=== PATIENT | female | born 1955 | race African-American/Black ===

== ENCOUNTER → 2020-10-19 | Outpatient (CLI) | payer OTHER ==
--- NOTE | 2020-10-20 10:21 | RAD ---
EXAM: AP, oblique and lateral views of the feet DATE: 10/19/2020 3:30 PM INDICATION: Reason: HALLUX RIGIDUS M20.21, M20.22 / Spl. Instructions: / History: . COMPARISON: No Prior FINDINGS: Bilateral hallux valgus. Lateral subluxation sesamoids, greater on the right. Bilateral accessory na vicular. Mild bilateral hallux MTP joint degenerative change. Forefoot soft tissue swelling. No evide nce of acute fracture or dislocation. IMPRESSION: Mild hallux MTP joint degenerative change with small osteophytes. Bilateral hallux valgus with latera l subluxation of the sesamoids, greater on the right. Electronically signed by: En Thomas MD (10/20/2020 10:19 AM) [id number]
== END ==
LOC: RAD 15:22
PROVIDERS: ATTEND Podiatrist Foot Surgery
DX: M19.072 Primary osteoarthritis, left ankle and foot (principal); M19.071 Primary osteoarthritis, right ankle and foot; M20.12 Hallux valgus (acquired), left foot; M20.11 Hallux valgus (acquired), right foot; M79.89 Other specified soft tissue disorders
CPT/HCPCS: 73630

== ENCOUNTER → 2021-01-06 | Outpatient (CLI) | payer OTHER, MEDICARE ==
--- NOTE | 2021-01-07 10:34 | RAD ---
US RENAL BILAT History: Reason: OTHER MICROSCOPIC HEMATURIA / Spl. Instructions: / History: Comparison: None. Procedure: Transabdominal ultrasound images are obtained of the kidneys and bladder. Findings: Right kidney: measures 10.8 x 5.2 x 4.3 cm. Multiple right renal cysts largest measures 4.9 x 3.8 x 3.3 cm with small septation. No hydronephrosis. Left kidney: measures 10.9 x 4.3 x 5.1 cm. Left renal cyst measures 4.5 x 3.7 x 4.1 cm. No hydroneph rosis. Urinary bladder: No urinary bladder wall thickening. Left ureteral jet identified. Right ureteral jet not identified during time of imaging. The IVC is normal caliber. The visualized abdominal aorta is normal caliber. IMPRESSION: 1. Bilateral renal cysts. Septated right superior renal cyst. Bosniak 2. No follow-up imaging is rec ommended per consensus recommendations based on imaging criteria. Electronically signed by: Rico Santo DO (01/07/2021 10:31 AM) [id number]
== END ==
LOC: US 16:32
PROVIDERS: ATTEND Specialist
DX: N28.1 Cyst of kidney, acquired (principal); R31.29 Other microscopic hematuria
CPT/HCPCS: 76770

== ENCOUNTER 2021-01-22 15:55 | Emergency (ER) | payer OTHER, MEDICARE ==
[~2021-01-22] VITALS: Ht 167.6 cm; Wt 72.1 kg
[2021-01-22 15:59] VITALS: BP 145/91
--- NOTE | 2021-01-22 16:26 | PHYS DOC ---
Past History Past Surgical History: Hip Replacement, Hysterectomy Additional Past Surgical Histo: bilateral hip replacement Alcohol Use: None General Adult EDM: Chief Complaint: CHEST PAIN HPI: HPI: 65-year-old female presents with right-sided chest pain and headache. The patient states that she feels like she has pressure behind her bilateral eyes. This started prior to the chest pain. Chest pain started yesterday afternoon and came on out of nowhere. She was not doing anything particular but was preparing food at work. 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 She was not doing anything exceptionally strenuous or different than normal. The pain feels like a rubbing sensation of the right side of her chest. It is a 6 out of 10. Patient has no cardiac history. She has no significant medical history. She does not take any medications daily except for vitamins. She has had sinus infections in the past. She denies fever or chills. Review of Systems: Review of Systems: Constitutional: Denies fever or chills Eyes: Denies change in visual acuity HENT: Denies nasal congestion or sore throat Respiratory: Denies cough or shortness of breath Cardiovascular: Chest pain GI: Denies abdominal pain, nausea, vomiting, bloody stools or diarrhea : Denies dysuria Musculoskeletal: Denies back pain or joint pain Integument: Denies rash Neurologic: Headache. Denies focal weakness or sensory changes Endocrine: Denies polyuria or polydipsia Lymphatic: Denies swollen glands Psychiatric: Denies depression or anxiety Current Medications: Current Meds: Current Medications Medications (Trade) Dose Ordered Sig/Madiha Start Time Stop Time Status Last Admin Dose Admin Diphenhydramine HCl (Benadryl) 25 mg 1X ONCE 01/22/21 16:30 01/22/21 16:31 Ketorolac Tromethamine (Toradol 30mg Vial) 30 mg 1X ONCE 01/22/21 16:30 01/22/21 16:31 Metoclopramide HCl (Reglan Vial) 10 mg 1X ONCE 01/22/21 16:30 01/22/21 16:31 Sodium Chloride 1,000 ml @ 1,000 mls/hr 1X ONCE 01/22/21 16:30 01/22/21 17:29 Allergies: Allergies: Allergies Coded Allergies Type Severity Reaction Last Updated Verified No Known Drug Allergies 01/22/21 No Physical Exam: PE: Constitutional: Well developed, well nourished, no acute distress, non-toxic appearance. [] HENT: Normocephalic, atraumatic, bilateral external ears normal, oropharynx moist, no oral exudates, nose normal. [] Eyes: PERRLA, EOMI, conjunctiva normal, no discharge. [] Neck: Normal range of motion, no tenderness, supple, no stridor. [] Cardiovascular: Heart rate 80, regular rhythm, no murmur [] Lungs & Thorax: Bilateral breath sounds clear to auscultation [] Abdomen: Bowel sounds normal, soft, no tenderness, no masses, no pulsatile masses. [] Skin: Warm, dry, no erythema, no rash. [] Back: No tenderness, no CVA tenderness. [] Extremities: No tenderness, no cyanosis, no clubbing, ROM intact, no edema. [] Neurologic: Alert and oriented X 3, normal motor function, normal sensory function, no focal deficits noted. [] Psychologic: Affect normal, judgement normal, mood normal. [] Current Patient Data: Vital Signs: Vital Signs Date Time Temp Pulse Resp B/P (MAP) Pulse Ox O2 Delivery O2 Flow Rate FiO2 01/22/21 15:59 97.8 80 18 145/91 (109) 100 Room Air EKG: EKG: Sinus rhythm, rate 80, normal axis, no ST elevation or depression. [] Radiology/Procedures: Radiology/Procedures: [] Impressions: AP chest x-ray HISTORY: Chest pain. FINDINGS: Heart size normal. Mediastinal silhouette is normal. No pneumothorax, pulmonary opacities or pleural effusions. Surgical changes lower midline chest. Bones unremarkable. IMPRESSION: No acute process. Electronically signed by: Matthieu Boston MD (01/22/2021 4:42 PM) [facility] [place] DICTATED AND SIGNED BY: MATTHIEU BOSTON MD DATE: 01/22/21 164 CC: NAN ROBIN DO; NUNU WONG MD ~MTH0 0 Heart Score: C/O Chest Pain: Yes HEART Score for Chest Pain: HEART Score for Chest Pain Response (Comments) Value History Slighlty/Non-Suspicious 0 ECG Normal 0 Age > 65 2 Risk Factors 1 or 2 Risk Factors 1 Troponin < Normal Limit 0 Total 3 Risk Factors: Risk Factors: DM, Current or recent (<one month) smoker, HTN, HLP, family history of CAD, obesity. Risk Scores: Score 0 - 3: 2.5% MACE over next 6 weeks - Discharge Home Score 4 - 6: 20.3% MACE over next 6 weeks - Admit for Clinical Observation Score 7 - 10: 72.7% MACE over next 6 weeks - Early Invasive Strategies Course & Med Decision Making: Course & Med Decision Making Pertinent Labs and Imaging studies reviewed. (See chart for details) The patient's EKG is unremarkable. Her chest x-ray is unremarkable. For her headache I have given her 1 L normal saline, 10 mg of Reglan, 25 mg of Benadryl, and 30 mg of Toradol. Labs are unremarkable. Troponin is negative. This does not appear to be cardiopulmonary in nature. The patient is feeling better at this time. She is stable for discharge. If her symptoms come back or any new or worsening symptoms develop she will return to the emergency room. [] Dragon Disclaimer: Dragon Disclaimer: This electronic medical record was generated, in whole or in part, using a voice recognition dictation system. Departure Departure: Impression: Primary Impression: Chest pain Qualified Codes: R07.9 - Chest pain, unspecified Additional Impression: Headache Qualified Codes: R51.9 - Headache, unspecified Referrals: NUNU WONG MD (PCP) Patient Instructions: Chest Pain (Nonspecific), [id number] NAN ROBIN DO Jan 22, 2021 16:26
[2021-01-22] MEDS ORDERED: METOCLOPRAMIDE HCL 10 MG/2 ML VIAL. IVP ONE (16:30)
[2021-01-22] MEDS ORDERED: diphenhydrAMINE 50 MG/ML VIAL IVP ONE (16:30)
[2021-01-22] MEDS ORDERED: KETOROLAC 30 MG/ML VIAL. IVP ONE (16:30)
[2021-01-22] MEDS ORDERED: IV NORMAL SALINE 1,000ML 1,000 ML IV ONE (16:30)
[2021-01-22 16:33] LABS: BASO % 0 % (0-3); EOS # 0.1 x10^3/uL (0.0-0.7); EOS % 2 % (0-3); HEMATOCRIT 40.2 % (36.0-47.0); HEMOGLOBIN 13.3 g/dL (12.0-15.5); LYMPH # 2.3 x10^3/uL (1.0-4.8); LYMPH % 36 % (24-48); MEAN CORPUSCULAR HEMOGLOBIN 29 pg (25-35); MEAN CORPUSCULAR HGB CONC 33 g/dL (31-37); MEAN CORPUSCULAR VOLUME 89 fL (79-100); MONO # 0.8 x10^3/uL (0.0-1.1); MONO % 12 % (0-9); NEUT # 3.1 x10^3uL (1.8-7.7); NEUT % 50 % (31-73); PLATELET COUNT 254 x10^3/uL (140-400); RED BLOOD COUNT 4.51 x10^6/uL (3.50-5.40); RED CELL DISTRIBUTION WIDTH 13.6 % (11.5-14.5); WHITE BLOOD COUNT 6.3 x10^3/uL (4.0-11.0)
[2021-01-22 16:43] LABS: CALCIUM 8.7 mg/dL (8.5-10.1); GFR 66.9; POTASSIUM 4.4 mmol/L (3.5-5.1)
--- NOTE | 2021-01-22 16:44 | RAD ---
AP chest x-ray HISTORY: Chest pain. FINDINGS: Heart size normal. Mediastinal silhouette is normal. No pneumothorax, pulmonary opacities o r pleural effusions. Surgical changes lower midline chest. Bones unremarkable. IMPRESSION: No acute process. Electronically signed by: Joseph Boston MD (01/22/2021 4:42 PM) [facility]
[2021-01-22 16:49] LABS: ALBUMIN 3.7 g/dL (3.4-5.0); ALBUMIN/GLOBULIN RATIO 1.1 (1.0-1.7); TOTAL BILIRUBIN 0.5 mg/dL (0.2-1.0); TOTAL PROTEIN 7.2 g/dL (6.4-8.2)
--- NOTE | 2021-01-22 16:52 | EKG ---
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
== END 2021-01-22 18:10 | disposition home or self-care (01) ==
LOC: ER 15:55
DX: R07.89 Other chest pain (principal); R51.9 Headache, unspecified; Z90.710 Acquired absence of both cervix and uterus
CPT/HCPCS: 36415; 71045; 80053; 84484; 85025; 93005; 96361; 96374; 96375; 99285; J1200; J1885; J2765; J7030

== ENCOUNTER → 2021-03-11 | Outpatient (CLI) | payer OTHER ==
--- NOTE | 2021-03-11 18:20 | RAD ---
Study: XR HIP_RT 2-3VIEWS Indication: Fall. Pain. Comparison: 12/17/2020 Findings: Total right hip arthroplasty construct. Unchanged hardware positioning. No evidence for loosening. No periprosthetic fracture is identified. The right obturator ring appears intact. Limited evaluation o f the sacrum and lower lumbar spine. Impression: Intact and well fixated right hip arthroplasty construct. No periprosthetic fracture. Electronically signed by: LAURYN KEMP MD (03/11/2021 6:18 PM) [facility]
== END ==
LOC: RAD 17:32
PROVIDERS: ATTEND Nurse Practitioner
DX: M25.551 Pain in right hip (principal); Z96.641 Presence of right artificial hip joint
CPT/HCPCS: 73502

== ENCOUNTER → 2021-06-01 | Outpatient (CLI) | payer OTHER, MEDICARE ==
[2021-06-02 00:07] LABS: FSH 63.4 mIU/mL (.); LUTEINIZING HORMONE 31.9 mIU/mL (.)
[2021-06-02 16:33] LABS: FREE T4 0.96 ng/dL (0.76-1.46); THYROID STIM HORMONE (TSH) 0.783 uIU/mL (0.358-3.740)
== END ==
LOC: LAB 15:07
PROVIDERS: ATTEND Family Medicine
DX: L29.9 Pruritus, unspecified (principal); R23.2 Flushing
CPT/HCPCS: 36415; 82785; 83001; 83002; 84439; 84443; 86003

== ENCOUNTER → 2021-07-19 | Outpatient (CLI) | payer OTHER, MEDICARE ==
[2021-07-19 15:59] LABS: BASO % 1 % (0-3); EOS # 0.2 x10^3/uL (0.0-0.7); EOS % 3 % (0-3); HEMATOCRIT 41.6 % (36.0-47.0); HEMOGLOBIN 13.7 g/dL (12.0-15.5); LYMPH # 2.1 x10^3/uL (1.0-4.8); LYMPH % 31 % (24-48); MEAN CORPUSCULAR HEMOGLOBIN 30 pg (25-35); MEAN CORPUSCULAR HGB CONC 33 g/dL (31-37); MEAN CORPUSCULAR VOLUME 90 fL (79-100); MONO # 0.6 x10^3/uL (0.0-1.1); MONO % 8 % (0-9); NEUT # 3.9 x10^3uL (1.8-7.7); NEUT % 58 % (31-73); PLATELET COUNT 276 x10^3/uL (140-400); RED CELL DISTRIBUTION WIDTH 13.1 % (11.5-14.5); WHITE BLOOD COUNT 6.8 x10^3/uL (4.0-11.0)
[2021-07-19 16:13] LABS: ALBUMIN 3.7 g/dL (3.4-5.0); ALBUMIN/GLOBULIN RATIO 0.9 (1.0-1.7); CREATININE 0.9 mg/dL (0.6-1.0); GFR 75.3; POTASSIUM 4.1 mmol/L (3.5-5.1); TOTAL BILIRUBIN 0.4 mg/dL (0.2-1.0); TOTAL PROTEIN 7.7 g/dL (6.4-8.2)
[2021-07-19 16:19] LABS: BACTERIA,URINE 0 /HPF (0-FEW); CLARITY,URINE CLEAR; COLOR,URINE YELLOW; GLUCOSE,URINE NEG (NEG); NITRITE,URINE NEG (NEG); WBC,URINE 0 /HPF (0-4)
[2021-07-19 16:20] LABS: SQUAMOUS EPITHELIAL CELL,UR OCC /LPF
[2021-07-19 22:24] LABS: SEDIMENTATION RATE 4 (0-25)
[2021-07-20 15:11] LABS: FREE T4 0.92 ng/dL (0.76-1.46); THYROID STIM HORMONE (TSH) 0.535 uIU/mL (0.358-3.740)
== END ==
LOC: LAB 15:15
PROVIDERS: ATTEND Family Medicine
DX: R53.83 Other fatigue (principal); D50.9 Iron deficiency anemia, unspecified
CPT/HCPCS: 36415; 80053; 81001; 83540; 84439; 84443; 84466; 85025; 85651